=== PATIENT | female | born 1980 | race Caucasian/White ===

== ENCOUNTER 2017-08-30 13:17 | Emergency (ER) | payer BC, OTHER ==
[2017-08-30 14:30] VITALS: BP 135/71
--- NOTE | 2017-08-30 16:10 | UC ---
Respiratory Complaint HPI - HPI Summary HPI Summary: Cough and congestion for about 4-5 days. She has had a low grade fever. Cough is mainly dry. She has asthma and albuterol has been helpful. - History of Current Complaint Chief Complaint: UCGeneralIllness Stated Complaint: FEVER,COUGH Time Seen by Provider: 08/30/17 15:54 Hx Obtained From: Patient Hx Last Menstrual Period: DEPO PROVERA ?: No Onset/Duration: Gradual Onset, Lasting Days Severity Initially: Moderate Severity Currently: Moderate Character: Cough: Nonproductive Aggravating Factors: Deep Breaths, Recumbent Position Alleviating Factors: Bronchodilator, OTC Meds Associated Signs And Symptoms: Positive: Fever, URI, Nasal Congestion. Negative : Dyspnea, Hemoptysis, Dizziness, Calf Pain, Calf Swelling - Allergies/Home Medications Allergies/Adverse Reactions: Allergies Allergy/AdvReac Type Severity Reaction Status Date / Time Prochlorperazine Allergy Intermediate Hallucinati Verified 08/30/17 14:30 [From Compazine] ons Meperidine [From Demerol HCl] Allergy Hallucinati Verified 08/30/17 14:30 ons PMH/Surg Hx/FS Hx/Imm Hx Previously Healthy: No - asthma. - Surgical History Surgical History: Yes Surgery Procedure, Year, and Place: CYSTECTOMY R OVARY. APPY - Family History Known Family History: Positive: Other - son with asthma and is currently sick with similar symptoms. - Social History Lives: With Family Alcohol Use: None Substance Use Type: None Smoking Status (MU): Never Smoked Tobacco - Immunization History Most Recent Influenza Vaccination: NOT CURRENT Review of Systems Constitutional: Fever ENT: Sinus Congestion Respiratory: Cough All Other Systems Reviewed And Are Negative: Yes Physical Exam Triage Information Reviewed: Yes Appearance: Well-Appearing, No Pain Distress, Well-Nourished Vital Signs: Initial Vital Signs Temp 100.8 F 08/30/17 14:28 Pulse 114 08/30/17 14:28 Resp 18 08/30/17 14:28 BP 135/71 08/30/17 14:28 Pulse Ox 98 08/30/17 14:28 Vital Signs Reviewed: Yes Eyes: Positive: Conjunctiva Clear. Negative: Conjunctiva Inflamed ENT: Positive: Pharynx normal, Nasal congestion, TMs normal, Uvula midline. Negative: Pharyngeal erythema, TM bulging, TM dull, TM red, Tonsillar swelling, Tonsillar exudate, Trismus, Muffled voice, Sinus tenderness Neck: Positive: Supple, Nontender, No Lymphadenopathy Respiratory: Positive: Lungs clear, Normal breath sounds, No respiratory distress, No accessory muscle use. Negative: Respiratory distress, Decreased breath sounds, Accessory muscle use, Crackles, Rhonchi, Stridor, Wheezing Cardiovascular: Positive: RRR, Pulses Normal, Brisk Capillary Refill Abdomen Description: Positive: Soft. Negative: Distended, Guarding Musculoskeletal: Positive: No Edema Neurological: Positive: Alert, Muscle Tone Normal. Negative: Fatigued Psychological: Positive: Age Appropriate Behavior Skin: Negative: rashes UC Diagnostic Evaluation - Laboratory O2 Sat by Pulse Oximetry: 98 Respiratory Course/Dx - Course Course Of Treatment: uri symptoms viral in clinical presentation. No signs of pneumonia. They will try supportive care and if not better in 3-4 days, then start medrol dose pack and or z pack. - Differential Dx/Diagnosis Provider Diagnoses: bronchitis Discharge - Discharge Plan Condition: Good Disposition: HOME Prescriptions: Azithromyxin KAT (NF) [Z-Kat (Zithromax) 250 mg tabs #6] 2 tab PO .TODAY, THEN 1 DAILY #6 tab Methylprednisolone [Medrol Dosepak 4 MG*] 4 mg PO .SEE KAT INSTRUCTION #21 tab Patient Education Materials: Acute Bronchitis (ED) Referrals: Amanda Holliday PA [Primary Care Provider] - Additional Instructions: Start the steroids and the azithromycin if not improved in the next 4-5 days.
== END 2017-08-30 16:11 | disposition home or self-care (01) ==
LOC: UCCORT 13:17
DX: J45.909 Unspecified asthma, uncomplicated (principal); Z79.899 Other long term (current) drug therapy; Z88.5 Allergy status to narcotic agent; Z88.8 Allergy status to other drugs, medicaments and biological substances
CPT/HCPCS: 99212; G0463